=== PATIENT | female | born 1990 | race Caucasian/White ===

== ENCOUNTER 2020-05-22 17:24 | Emergency (ER) | payer BC ==
--- NOTE | 2020-05-22 18:15 | EDM.PDOC ---
ED HPI GENERAL MEDICAL PROBLEM - General Chief Complaint: Wound Recheck Stated Complaint: INCISION AREA RED Time Seen by Provider: 05/22/20 18:00 Source of Information: Reports: Patient History Limitations: Reports: No Limitations - History of Present Illness INITIAL COMMENTS - FREE TEXT/NARRATIVE: Daksha comes in for inspection of pfannensteil incision post op May 07, reporting some swelling and minimal discharge from the wound. The repair was made with absorbable subcuticular sutures. There is some R lateral swelling but no griselda tenderness or warmth, and some discoloration from ecchymoses that appears to be fading. Lower abdomen Pain Score (Numeric/FACES): 1 - Related Data Allergies Allergy/AdvReac Type Severity Reaction Status Date / Time celecoxib [From Celebrex] Allergy Rash Verified 05/22/20 17:36 dextromethorphan Allergy Hives Verified 05/22/20 17:36 [From Mucinex DM] [email or web address] [From Mucinex DM] Allergy Hives Verified 05/22/20 17:36 Home Meds: Home Meds Acetaminophen/HYDROcodone [[place]ward 325-5 MG] 1 tab Q4H PRN 05/22/20 [History] Ibuprofen 600 mg PO Q6H PRN 05/22/20 [History] Vit No.78/Iron/Fa [Prenatabs FA] 1 each PO DAILY 05/22/20 [History] Past Medical History Cardiovascular History: Reports: Arrhythmia Genitourinary History: Reports: None [employer] History: Reports: Other [employer] History: Musculoskeletal History: Reports: Fracture Other Musculoskeletal History: hx fx R wrist fx Neurological History: Reports: Migraines Endocrine/Metabolic History: Reports: Obesity/BMI 30+ - Infectious Disease History Infectious Disease History: Reports: Chicken Pox - Past Surgical History Head Surgeries/Procedures: Reports: None Cardiovascular Surgical History: Reports: Cardiac Ablation Female Surgical History: Reports: Section Musculoskeletal Surgical History: Reports: None Social & Family History - Family History Family Medical History: Noncontributory - Tobacco Use Tobacco Use Status *Q: Never Tobacco User - Caffeine Use Caffeine Use: Reports: Coffee, Soda - Recreational Drug Use Recreational Drug Use: No ED ROS GENERAL - Review of Systems Review Of Systems: Comprehensive ROS is negative, except as noted in HPI. ED EXAM, SKIN/RASH Exam: See Below Exam Limited By: No Limitations General Appearance: Alert, WD/WN, No Apparent Distress Head: Normocephalic Neck: Normal Inspection Respiratory/Chest: Lungs Clear Cardiovascular: Regular Rate, Rhythm, No Murmur GI/Abdominal: Normal Bowel Sounds, Soft, Non-Tender, No Organomegaly, No Distention, No Mass, Other (inspection of pfannensteil wound notes a R lateral area of induration, nonfluctuant, measuring approximately 4.5 cm, wihtout erythema or tenderness. there is some dependent fading ecchymoses. No dehisence is detected. ) (Female) Exam: Normal External Exam Rectal (Female) Exam: Deferred Back Exam: Normal Inspection Extremities: Normal Inspection Neurological: Alert, Oriented, CN II-XII Intact Psychiatric: Normal Affect, Normal Mood Skin: Warm, Dry ED SKIN PROCEDURES - Additional/Other Procedure(s) Other (Free Text) Procedure(s): With patient consent, the surgical wound of the lower abdomen was prepped with 70% ETOH, and the R lateral wound was probbed with a curved hemostat, releasing some minor amounts of seromatous discharge, WC obtained. The wound was dressed with 4x4's. Patient tolerated procedure well. Course - Vital Signs Text/Narrative:: Patient tolerated procedure well. Last Recorded V/S: Last Vital Signs Temp 36.8 C 05/22/20 17:32 Pulse 91 05/22/20 17:32 Resp 18 05/22/20 17:32 BP 125/79 05/22/20 17:32 Pulse Ox 100 05/22/20 17:32 - Orders/Labs/Meds Orders: Active Orders 24 hr Category Date Time Status CULTURE ROUTINE + SMEAR [RM] Stat Lab 05/22/20 18:08 Ordered Departure - Departure Time of Disposition: 18:17 Disposition: Home, Self-Care 01 Condition: Good Clinical Impression: Seroma, postoperative Qualifiers: Surgical complication system/body Area: skin Procedure type: non-dermatologic Qualified Code(s): L76.34 - Postprocedural seroma of skin and subcutaneous tissue following other procedure - Discharge Information *PRESCRIPTION DRUG MONITORING PROGRAM REVIEWED*: Not Applicable *COPY OF PRESCRIPTION DRUG MONITORING REPORT IN PATIENT [place]: Not Applicable Referrals: Briseida Archer NP [Primary Care Provider] - Sepsis Event Note (ED) - Evaluation Sepsis Screening Result: No Definite Risk - Focused Exam Vital Signs: Vital Signs Temp Pulse Resp BP Pulse Ox 05/22/20 17:32 36.8 C 91 18 125/79 100 - Problem List & Annotations (1) Seroma, postoperative SNOMED Code(s): 704281913 Code(s): [id number] - Status: Acute Annotation/Comment:: I suggested local wound cares and daily dressing changes. Prognosis is good. Qualifiers: Surgical complication system/body Area: skin Procedure type: non- dermatologic Qualified Code(s): L76.34 - Postprocedural seroma of skin and subcutaneous tissue following other procedure - Problem List Review Problem List Initiated/Reviewed/Updated: Yes - My Orders Last 24 Hours: My Active Orders 05/22/20 18:08 CULTURE ROUTINE + SMEAR [RM] Stat - Assessment/Plan Last 24 Hours: My Active Orders 05/22/20 18:08 CULTURE ROUTINE + SMEAR [RM] Stat Plan: Follow up with PCP if needed.
== END 2020-05-22 19:00 | disposition home or self-care (01) ==
LOC: FB.ED 17:24
DX: L76.34 Postprocedural seroma of skin and subcutaneous tissue following other procedure (principal); E66.9 Obesity, unspecified; Z88.1 Allergy status to other antibiotic agents; Z88.8 Allergy status to other drugs, medicaments and biological substances; Z68.35 Body mass index [BMI] 35.0-35.9, adult
CPT/HCPCS: 87070; 87077; 87186; 87205; 99282; 99284

== ENCOUNTER 2022-04-28 19:45 | Emergency (ER) | payer BC ==
[2022-04-28] MEDS ORDERED: Prochlorperazine 10 MG in Sodium Chloride 0.9% 50 ML IV ONE (20:08)
[2022-04-28] MEDS ORDERED: Sodium Chloride 0.9% 10 ML Syringe FLUSH PRN (20:08)
[2022-04-28] MEDS ORDERED: Ketorolac 30 MG/ML SDV IVPUSH ONE (20:08)
[2022-04-28] MEDS ORDERED: Prochlorperazine 10 MG/2 ML SDV IVPUSH ONE (20:09)
[2022-04-28] MEDS ORDERED: Sodium Chloride 0.9% 1,000 ML IV SCH (20:15)
[2022-04-28 20:40] LABS: ESTIMATED GFR 100 mL/min (>60)
== END 2022-04-28 21:28 | disposition home or self-care (01) ==
LOC: FB.ED 19:45
DX: G43.909 Migraine, unspecified, not intractable, without status migrainosus (principal); E86.0 Dehydration; E66.9 Obesity, unspecified; Z68.27 Body mass index [BMI] 27.0-27.9, adult; Z88.1 Allergy status to other antibiotic agents; Z88.8 Allergy status to other drugs, medicaments and biological substances
CPT/HCPCS: 36415; 80048; 85025; 96361; 96374; 96375; 99283; J0780; J1885; J3490; J7030

== ENCOUNTER 2024-09-24 16:59 | Emergency (ER) | payer BC ==
[2024-09-24] MEDS: Sodium Chloride 0.9% 1,000 ML IV ONE (17:40)
[2024-09-24] MEDS: Ketorolac 30 MG/ML SDV IVPUSH ONE (17:45)
[2024-09-24] MEDS: diphenhydrAMINE 50 MG/ML SDV IVPUSH ONE (17:45)
[2024-09-24] MEDS: Metoclopramide 10 MG/2 ML SDV IVPUSH ONE (17:49)
== END 2024-09-24 19:01 | disposition home or self-care (01) ==
LOC: FB.ED 16:59
DX: G43.909 Migraine, unspecified, not intractable, without status migrainosus (principal); Z88.1 Allergy status to other antibiotic agents; Z88.8 Allergy status to other drugs, medicaments and biological substances; Z79.899 Other long term (current) drug therapy
CPT/HCPCS: 96361; 96374; 96375; 99283; J1200; J1885; J2765